=== PATIENT | female | born 1955 | race Caucasian/White ===

== ENCOUNTER 2016-03-27 18:36 | Observation (INO) | payer BC ==
[2016-03-27] MEDS ORDERED: LABETALOL HCL 5 MG/ML 20 ML MDV IVP ONE ×3 (18:57→20:29)
--- NOTE | 2016-03-27 18:58 | CPEKG ---
Heart Rate: 64 RR Interval: 938 P-R Interval: 156 QRSD Interval: 98 QT Interval: 412 QTC Interval: 425 P [place]: 65 QRS [place]: 23 T Wave [place]: -23 EKG Severity - BORDERLINE ECG - EKG Impression: SINUS RHYTHM EKG Impression: PROBABLE LEFT ATRIAL ABNORMALITY EKG Impression: BORDERLINE T ABNORMALITIES, INFERIOR LEADS Electronically Signed By: Ras Ridley 27-Mar-2016 21:06:27
--- NOTE | 2016-03-27 19:05 | EDPHY ---
H & P Stated Complaint: ROBERTSON and HTN Source: Patient, Family Exam Limitations: No limitations - Personal History Current Tetanus Diphtheria and Acellular Pertussis (TDAP): Yes Tetanus Vaccine Date: within 10 years - Medical/Surgical History Hx Asthma: No Hx Chronic Respiratory Disease: No Hx Diabetes: No Hx Cardiac Disease: No Hx Renal Disease: No Hx Cirrhosis: No Hx Alcoholism: No Hx HIV/AIDS: No Hx Splenectomy or Spleen Trauma: No Other PMH: HTN, hypothyroid, - Social History Smoking Status: Never smoked HPI/ROS: CHIEF COMPLAINT: Headache, high blood pressure HISTORY OF PRESENT ILLNESS: several hours history of high blood pressure and headache. This was a gradual onset. Blood pressure has been 190 systolic with varying diastolic measures. Headache is mild and vague primarily on the left hemisphere. No sudden onset. No worst headache of her life. No neck pain or stiffness. No fever or chills. No cough or congestion. No abdominal pain or urinary complaints. History of hypertension on Diovan with medication and hand. She has been weaned off of her propranolol, which she took for tremor. Over the past 2 weeks she has also been creeping up. She has no particular modifying factors. She does have hypothyroidism and takes nature Synthroid, and feels that this may have been increased to much recently. No other associated complaints or modifying factors. REVIEW OF SYSTEMS: Ten systems reviewed and are negative unless otherwise noted in the HPI EXAMINATION General Appearance: Alert, no distress Head: normocephalic, atraumatic . Eyes: Pupils equal and round, no conjunctival pallor or injection. No hyphema. No subconjunctival hemorrhage. EOMs intact. ENT, Mouth: Mucous membranes moist . Uvula midline. Ears clear. Neck: Normal inspection, supple, non-tender . Painless range of motion all planes. Respiratory: Lungs are clear to auscultation No meningismus. . No wheezing, rhonchi or Crackles Cardiovascular: Regular rate and rhythm. Pulses intact distally with symmetric radial, DP and PT pulses Gastrointestinal: Abdomen is soft and nontender. No tympany, rigidity. Nonacute abdomen Back: non-tender, no bony abnormalities Neurological: A&O, nonfocal, cranial nerves 2-12 grossly intact. No focal deficits. No pronator drift. Strength is symmetric in all limbs. No nystagmus. NIH stroke scale 0.Reflexes are symmetric in the patellar and Achilles Skin: Warm and dry, no rash Extremities: Nontender, no pedal edema Psychiatric: Mood and affect normal DIFFERENTIAL DIAGNOSES: Including but not limited to hypertensive emergency, hypertensive urgency, hypertensive headache, hypothyroidism MDM: 6:50 p.m. hypertensive headache without any neuro deficits. She does have a headache and reports of confusion, but she is alert and oriented without any focal deficits. Her strength is symmetric in all limbs. She has no stroke-like symptoms or no stroke findings on examination. Blood pressure was 245/120 by my witnessed. We did order labetalol IV. CT scan is pending as well as laboratory studies and chest x-ray. Plan for admission for hypertensive emergency. Hypertensive urgency. Negative CT of the head. Laboratory studies reveal no evidence of end-organ damage. Blood pressure has come down with our treatment. She is feeling better and her headache is improved. We discussed the case with the hospitalist, Dr. Rangel. Will admit patient to PCU for ongoing management of her care. She remains awake, alert, and neurovascular intact without any chest pain or EKG changes. Patient and spouse are comfortable with this plan she is admitted in stable condition with hypertension. EKG: Interpreted by Dr. Ridley SUPERVISION: Patient was evaluated in conjunction with the supervising physician. Please see their note for details. (Andre Steele) Constitutional: Initial Vital Signs Temperature (C) 98.1 F 03/27/16 18:41 Heart Rate 68 03/27/16 18:41 Respiratory Rate 18 03/27/16 18:41 Blood Pressure 238/119 H 03/27/16 18:41 O2 Sat (%) 94 03/27/16 18:41 O2 Delivery Mode Room Air Allergies/Adverse Reactions: alprazolam [From Xanax] Allergy (Verified 03/27/16 20:09) Home Medications: Medication Instructions Recorded Herbals/Supplements -Info Only 1 ea PO DAILY 03/27/16 Naproxen Sodium [Aleve 220 MG (*)] 220 mg PO HS 03/27/16 Nature Throid 48.75 Mg 48.75 mg PO DAILY 03/27/16 Valsartan [Diovan (*)] 160 mg PO DAILY 03/27/16 Medical Decision Making ED Course/Re-evaluation: This patient was seen and examined by me. Chest is clear to auscultation, heart regular rhythm and rate without murmur. Neurologic exam intact. She was initially given labetalol 10 mg IV x3, which transiently brought her blood pressure down. However her systolic blood pressure quickly climbed back up to over 200. Dr. Rangel was consulted and will admit the pt to PCU. A nitroglycerin drip was started. She was also given labetalol 400 mg orally. ( Cordelia Randolph) - Data Points Laboratory Results: Laboratory Results 03/27/16 18:55 03/27/16 18:55 03/27/16 03/27/16 03/27/16 19:51 18:55 18:53 WBC 7.67 10^3/uL (3.80-9.50) RBC 4.80 10^6/uL (4.18-5.33) Hgb 15.5 g/dL (12.6-16.3) POC Hgb 16.3 H gm/dL (12.3-15.9) Hct 44.3 % (38.0-47.0) POC Hct 48 H % (35.5-47.5) MCV 92.3 fL (81.5-99.8) MCH 32.3 pg (27.9-34.1) MCHC 35.0 g/dL (32.4-36.7) RDW 11.8 % (11.5-15.2) Plt Count 257 10^3/uL (150-400) MPV 10.7 fL (8.7-11.7) Neut % (Auto) 48.4 % (39.3-74.2) Lymph % (Auto) 40.5 % (15.0-45.0) [place] % (Auto) 9.3 % (4.5-13.0) Eos % (Auto) 1.2 % (0.6-7.6) Baso % (Auto) 0.5 % (0.3-1.7) Nucleat RBC Rel Count 0.0 % (0.0-0.2) Absolute Neuts (auto) 3.71 10^3/uL (1.70-6.50) Absolute Lymphs (auto) 3.11 H 10^3/uL (1.00-3.00) Absolute Monos (auto) 0.71 10^3/uL (0.30-0.80) Absolute Eos (auto) 0.09 10^3/uL (0.03-0.40) Absolute Basos (auto) 0.04 10^3/uL (0.02-0.10) Absolute Nucleated RBC 0.00 10^3/uL (0-0.01) Immature Gran % 0.1 % (0.0-1.1) Immature Gran # 0.01 10^3/uL (0.00-0.10) PT 12.5 SEC (12.0-15.0) INR 0.94 (0.83-1.16) APTT 26.7 SEC (23.0-38.0) POC Sodium 144 mEq/L (134-144) Sodium 142 mEq/L (134-144) POC Potassium 3.1 L mEq/L (3.3-5.0) Potassium 3.4 L mEq/L (3.5-5.2) POC Chloride 104 mEq/L (96-108) Chloride 103 mEq/L (97-110) Carbon Dioxide 24 mEq/l (22-31) Anion Gap 15 mEq/L (8-16) POC BUN 22 mg/dL (7-23) BUN 19 mg/dL (7-23) Creatinine 0.7 mg/dL (0.6-1.0) POC Creatinine 0.8 mg/dL (0.6-1.2) Estimated GFR > 60 Glucose 96 mg/dL (70-100) POC Glucose 97 mg/dL (70-100) Calcium 10.5 H mg/dL (8.5-10.4) Total Bilirubin 0.8 mg/dL (0.1-1.4) Conjugated Bilirubin 0.2 mg/dL (0.0-0.5) Unconjugated Bilirubin 0.6 mg/dL (0.0-1.1) AST 33 IU/L (14-46) ALT 53 H IU/L (9-52) Alkaline Phosphatase 82 IU/L (38-126) Troponin I < 0.012 ng/mL (0-0.034) NT-Pro-B Natriuret Pep 68 pg/mL (0-125) Total Protein 8.8 H g/dL (6.3-8.2) Albumin 4.9 g/dL (3.5-5.0) TSH 3.550 uIU/mL (0.465-4.680) Urine Color YELLOW Urine Appearance HAZY Urine pH 6.0 (5.0-7.5) Ur Specific [place] 1.003 (1.002-1.030) Urine Protein NEGATIVE (NEGATIVE) Urine Ketones NEGATIVE (NEGATIVE) Urine Blood NEGATIVE (NEGATIVE) Urine Nitrate NEGATIVE (NEGATIVE) Urine Bilirubin NEGATIVE (NEGATIVE) Urine Urobilinogen NEGATIVE EU (0.2-1.0) Ur Leukocyte Esterase NEGATIVE (NEGATIVE) Ur Culture Indicated? NOT INDICATED (NI) Urine Glucose NEGATIVE (NEGATIVE) Medications Given: Discontinued Medications Labetalol HCl (Trandate Injection) 10 mg IVP EDNOW ONE Stop: 03/27/16 18:58 Last Admin: 03/27/16 19:03 Dose: 10 mg Labetalol HCl (Trandate Injection) 10 mg IVP EDNOW ONE Stop: 03/27/16 19:40 Last Admin: 03/27/16 19:59 Dose: 10 mg Labetalol HCl (Trandate Injection) 10 mg IVP EDNOW ONE Stop: 03/27/16 20:30 Last Admin: 03/27/16 20:38 Dose: 10 mg Point of Care Test Results: 03/27/16 18:53 POC Sodium 144 POC Potassium 3.1 L POC Chloride 104 POC BUN 22 POC Creatinine 0.8 POC Glucose 97 Departure - Departure Disposition: [facility] Inpatient Acute Clinical Impression: Hypertensive emergency Headache Qualifiers: Qualifier Code: (R51) Headache Condition: Good Referrals: Rhina Telelz MD [Primary Care Provider] - As per Instructions
[2016-03-27 19:12] LABS: % IMMATURE GRANULYOCYTES 0.1 % (0.0-1.1); ABSOLUTE IMMATURE GRANULOCYTES 0.01 10^3/uL (0.00-0.10); ADD DIFF? NO; ADD MORPH? NO; ADD SCAN? NO; ATYPICAL LYMPHOCYTE FLAG 10 (0-99); FRAGMENT RBC FLAG 10 (0-99); HEMATOCRIT 44.3 % (38.0-47.0); HEMOGLOBIN 15.5 g/dL (12.6-16.3); LEFT SHIFT FLG 0 (0-99); LIPEMIA HEMOLYSIS FLAG 90 (0-99); MEAN CELL HEMOGLOBIN 32.3 pg (27.9-34.1); MEAN CELL VOLUME 92.3 fL (81.5-99.8); MEAN PLATELET VOLUME 10.7 fL (8.7-11.7); PLATELET CLUMPS FLAG 10 (0-99); PLATELET COUNT 257 10^3/uL (150-400); RED CELL DISTRIBUTION WIDTH 11.8 % (11.5-15.2)
[2016-03-27 19:20] LABS: INR 0.94 (0.83-1.16); PROTIME(PATIENT) 12.5 SEC (12.0-15.0)
[2016-03-27 19:21] LABS: APTT 26.7 SEC (23.0-38.0)
[2016-03-27 19:25] LABS: ALANINE AMINOTRANSFERASE 53 IU/L (9-52); ALBUMIN 4.9 g/dL (3.5-5.0); ALKALINE PHOSPHATASE 82 IU/L (38-126); ANION GAP 15 mEq/L (8-16); ASPARTATE AMINOTRANSFERASE 33 IU/L (14-46); BILIRUBIN,TOTAL 0.8 mg/dL (0.1-1.4); BILIRUBIN-CONJUGATED 0.2 mg/dL (0.0-0.5); BILIRUBIN-UNCONJUGATED 0.6 mg/dL (0.0-1.1); CALCIUM 10.5 mg/dL (8.5-10.4); CARBON DIOXIDE 24 mEq/l (22-31); CHLORIDE 103 mEq/L (97-110); CREATININE 0.7 mg/dL (0.6-1.0); GLOMERULAR FILTRATION RATE > 60; GLUCOSE 96 mg/dL (70-100); POTASSIUM 3.4 mEq/L (3.5-5.2); SODIUM 142 mEq/L (134-144); TOTAL PROTEIN 8.8 g/dL (6.3-8.2)
--- NOTE | 2016-03-27 19:35 | DX ---
Portable Chest, Single View 19:22 Hours Indication: Hypertensive emergency. Comparison: CT chest dated September 15, 2015 and 2 view chest dated September 27, 2010 Findings: The lungs are well aerated and clear with minimal peribronchial thickening in the lower steve g zones. No pneumothorax, edema, consolidation or effusion. Heart size within normal limit. Descendin g thoracic aorta has a tortuous contour. Lacelike matrix in the left humeral head is characteristic o f a benign enchondroma. Impression: Clear lungs. No pulmonary edema or effusion.
[2016-03-27 19:37] LABS: TROPONIN I < 0.012 ng/mL (0-0.034)
[2016-03-27 19:58] LABS: COLOR YELLOW; LEUKOCYTE ESTERASE,URINE NEGATIVE (NEGATIVE); NITRITE,URINE NEGATIVE (NEGATIVE)
--- NOTE | 2016-03-27 20:25 | CT ---
CT Head (Without Contrast) at 19;57 hours Indication: Headache. Hypertension. Technique: Standard noncontrast head CT protocol utilizing 5-mm thick collimated slices and field of view of 23 cm. Dose reduction techniques were utilized. Findings: The brain is normally developed. No intracranial hemorrhage, mass lesion, swelling, or ex traaxial fluid collection. The ventricles are normal caliber and midline. The avina and white matter has normal attenuation. No evidence of ischemia. The bones are unremarkable. The paranasal sinuse s are clear. Impression: Normal brain. No acute intracranial hemorrhage or swelling. Comment: Case was discussed with Andre Steele PA-C, at 8:05 p.m. on March 27, 2016.
[2016-03-27] MEDS ORDERED: NITROGLYCERIN/DEXTROSE 250 ML IV ONE (20:38)
[2016-03-27] MEDS ORDERED: LABETALOL HCL 200 MG TAB PO ONE (20:38)
[2016-03-27] MEDS ORDERED: NS 500 ML IV ONE (21:06)
[2016-03-27] MEDS ORDERED: ONDANSETRON DISINTEGRATING 4 MG TAB PO PRN (21:46)
[2016-03-27] MEDS ORDERED: ACETAMINOPHEN 325 MG TAB PO PRN (21:46)
[2016-03-27] MEDS ORDERED: ONDANSETRON 4 MG/2 ML VIAL IVP PRN (21:46)
[2016-03-27] MEDS ORDERED: NITROGLYCERIN/DEXTROSE 250 ML IV SCH (22:00)
--- NOTE | 2016-03-27 22:55 | GHP ---
[f rep st] HISTORY AND PHYSICAL DATE OF ADMISSION: 03/27/2016 DATE OF EVALUATION: 03/27/2016 HISTORY OF PRESENT ILLNESS: The patient is a pleasant 60-year-old female with a history of hypertens ion, who presents with markedly elevated blood pressure of 242/106. She has been in her usual state of health. She has recently transitioned from Synthroid to nature th yroid, which is an [place] Thyroid-like preparation . This has been about 2 weeks ago. Additionally, she has stopped taking propranolol which she has taken for many years for essential tremor. She does not take clonidine or Catapres. She does not drink a heavy amount of alcohol though she has 1-2 drinks nightly. She does not take chronic pain medicines or anything else from which might be w ithdrawing. She has a headache and some dizziness and that is why she presented. The headache has b een going on for a couple of weeks. She checked her blood pressure at home. It was higher than her blood pressure machine could read so she presented. There has been no urgency, frequency, dysuria. There has been no focal weakness or numbness. There has been no nausea, vomiting. REVIEW OF SYSTEMS: Complete 10-point review of systems conducted and negative except as noted in the HPI. PAST MEDICAL HISTORY: 1. Hypertension. 2. Hypothyroidism. 3. Essential tremor. 4. Lung nodules that have been stable over 1 year. ALLERGIES: Alprazolam. HOME MEDICATIONS: Valsartan, nature thyroid, naproxen, herbals. SOCIAL HISTORY: Quit tobacco a number of years ago. Still has the occasional cigarette, 1-2 drinks nightly. Quit a stressful job in January. FAMILY HISTORY: Father had hypertension. PHYSICAL EXAM: VITAL SIGNS: Blood pressure 238/119, pulse 68, breathing 18 times a minute, 94% on r oom air, temp 36.7. GENERAL: In no acute distress, anxious. HEENT: Sclerae anicteric. Oropharynx clear. Mucous membranes are moist. NECK: Supple without lymphadenopathy or JVD. LUNGS: Clear to auscultation bilaterally. HEART: S1, S2 without murmurs. ABDOMEN: Soft, nontender, nondistended. LOWER EXTREMITIES: Without edema. Calves nontender. SKIN: Without rash. NEUROLOGIC: Nonfocal other than essential tremor. LABS: White count 7.7, hematocrit of 44, platelets are 257,000. Coags normal. Sodium is 142, potas sium 3.4, chloride 103, bicarb 24, BUN 19, creatinine 0.7, glucose 96, calcium 10.5 slightly high, AL T is 63 slightly high. Troponin less than 0.012. UA is unremarkable. EKG, interpreted by me, shows sinus with normal axis and intervals. No ST or T-wave changes. No evidence of chronic hypertension . No LVH. Noncontrast head CT is normal. Chest x-ray, interpreted by me, shows no acute cardiopulm onary disease. Discussed the case with Dr. Hillary Randolph. ASSESSMENT/PLAN: A 60-year-old female with hypertensive urgency. 1. Hypertensive urgency. These are remarkably high blood pressures. I suspect this is due to a com bination of propranolol withdrawal, possibly over thyroid supplementation, as well as progressive hyp ertension. Given the degree of symptoms and hypertension, she is started on a nitro drip. I have st arted on her labetalol 400 b.i.d. Will continue her valsartan. I think we should likely be able to wean the nitro drip off if the labetalol becomes therapeutic. 2. Thyroid. Her TSH is normal here. We will continue this [place] Thyroid although I think it is pr obably reasonable that she go back to her Synthroid dose. 3. Tremor. We will see how she responds to the labetalol in terms of essential tremor. 4. Disposition: Observation status. 5. Prophylaxis: SCDs. Given her uncontrolled hypertension, would hold on pharmacologic prophylaxis . /[id number]/MODL
[2016-03-28 05:25] LABS: ANION GAP 12 mEq/L (8-16); CALCIUM 9.8 mg/dL (8.5-10.4); CARBON DIOXIDE 24 mEq/l (22-31); CHLORIDE 107 mEq/L (97-110); CREATININE 0.9 mg/dL (0.6-1.0); GLOMERULAR FILTRATION RATE > 60; GLUCOSE 101 mg/dL (70-100); POTASSIUM 4.3 mEq/L (3.5-5.2); SODIUM 143 mEq/L (134-144)
[2016-03-28] MEDS: VALSARTAN 160 MG TAB PO SCH (08:02)
[2016-03-28] MEDS ORDERED: LABETALOL HCL 200 MG TAB PO SCH (09:00)
[2016-03-28] MEDS ORDERED: NS 500 ML IV ONE (10:40)
[2016-03-28] MEDS ORDERED: NATURE THROID PO SCH (10:45)
[2016-03-28] MEDS: NATURE THROID PO SCH (11:49)
--- NOTE | 2016-03-28 16:24 | HOSPPROG ---
Hospitalist Progress Note Assessment/Plan: # hypertensive urgency- patient with blood pressures in the 240 systolic in the emergency department CT head( personally reviewed and interpreted) without acute finding patient received multiple labetalol pushes in the ED and 400 mg p.o. labetalol overnight blood pressures dropped this morning to 100 systolic- oxygen saturations 90 % on room air- creatinine 0.9 - holding additional BP meds - restart labetalol 100 twice daily with hold parameters for systolic less than 160 - continue home valsartan - will keep the patient an additional night for close cardiac monitoring # diet cardiac # disposition greater than 2 midnights as the patient is requiring active medication titration I have discussed the case with the RN- we will write hold parameters for new dose of labetalol for this evening if BP at goal between 150-170 can DC in the morning Subjective: denies chest pain feels very sluggish in heavy Objective: Vital Signs Temp Pulse Resp BP Pulse Ox 35.9 C L 60 16 131/73 H 91 L 03/28/16 11:08 03/28/16 11:08 03/28/16 11:08 03/28/16 11:51 03/28/16 11:08 Laboratory Results 03/28/16 04:32 03/27/16 03/28/16 03/29/16 05:59 05:59 05:59 Intake Total 420 500 Balance 420 500 PT 12.5 SEC (12.0-15.0) 03/27/16 18:55 INR 0.94 (0.83-1.16) 03/27/16 18:55 - Physical Exam Constitutional: appears nourished Eyes: anicteric sclera Ears, Nose, Mouth, Throat: moist mucous membranes Cardiovascular: regular rate and rhythym Respiratory: no respiratory distress, no rales or rhonchi Gastrointestinal: normoactive bowel sounds, soft, non-tender abdomen Genitourinary: no bladder fullness Skin: warm, normal color Musculoskeletal: No asymmetric calves Neurologic: AAOx3 Psychiatric: interacting appropriately, not anxious Lymph, Heme, Immunologic: no cervical LAD ICD10 Worksheet Patient Problems: Problems Problem Status Diagnosed Headache Acute Hypertensive emergency Acute
[2016-03-28] MEDS: LABETALOL HCL 100 MG TAB PO SCH (21:29)
[2016-03-29 05:08] VITALS: RESP 16
[2016-03-29 06:07] LABS: ANION GAP 10 mEq/L (8-16); CALCIUM 9.3 mg/dL (8.5-10.4); CARBON DIOXIDE 23 mEq/l (22-31); CHLORIDE 109 mEq/L (97-110); CREATININE 0.8 mg/dL (0.6-1.0); GLOMERULAR FILTRATION RATE > 60; GLUCOSE 98 mg/dL (70-100); POTASSIUM 4.4 mEq/L (3.5-5.2); SODIUM 142 mEq/L (134-144)
[2016-03-29] MEDS: NATURE THROID PO SCH (07:41)
[2016-03-29] MEDS: VALSARTAN 160 MG TAB PO SCH (07:50)
[2016-03-29] MEDS: LABETALOL HCL 100 MG TAB PO SCH (07:51)
[2016-03-29 08:02] VITALS: BP 160/98; PULSE 55; TEMP 97.5; O2SAT 98
[2016-03-29] MEDS ORDERED: AMIODARONE HCL 150 MG/100 ML BAG (1.5 MG/ML) IV ONE (09:19)
--- NOTE | 2016-03-29 18:18 | GDS ---
[f rep st] DISCHARGE SUMMARY DISCHARGE DIAGNOSES: Include: 1. Hypertensive urgency. 2. Hypothyroidism. 3. Essential tremor. HISTORY OF PRESENT ILLNESS: A 60-year-old female, who presented on 03/27/2016 with complaints of shaan vated blood pressures measured at home at greater than 240 systolic. For details of patient's initial presentation, please see the history and physical dated 03/27/2016. CONSULTATIVE SERVICES ON THIS PATIENT: None. PROCEDURES ON THIS PATIENT: On 03/27/2016, patient had a CT of the head which showed no acute stroke s or bleeds. HOSPITAL COURSE BY ISSUE: Hypertensive urgency: Patient presented to the ED with systolic blood pre ssure well above 200 systolic, was treated with multiple pushes of IV labetalol, then transitioned to the PCU for IV medications to lower her blood pressure. Patient was initiated on labetalol 400 b.i. d., in addition to her home dosing of valsartan. Patient had improved blood pressure control over he r first evening and then the morning after presentation, dropped her blood pressure below 100 systoli c and was symptomatic with dizziness and inability to ambulate. Patient was kept for an additional n ight for a continued titration of her regimen. On the day of disposition, her blood pressures have b een titrated to 150 systolic on valsartan 160 and labetalol 100 b.i.d. Patient has been instructed t o check her blood pressures at home and follow in the outpatient setting with her PCP for ongoing tit ration. MEDICATIONS AT THE TIME OF DISPOSITION: Please reference medication reconciliation printed on 2016. PENDING STUDIES AT THE TIME OF THIS DICTATION: None. FOLLOWUP APPOINTMENTS: Include with her PCP in 7-10 days for a blood pressure check and medication t itration if needed. I spent greater than 30 minutes in the planning and coordination of this discharge. /[id number]/MODL
== END 2016-03-29 13:19 | disposition home or self-care (01) ==
LOC: INTOOBSV 20:39 → F2W 22:00
PROVIDERS: ADMIT Internal Medicine; ATTEND Hospitalist
DX: I16.0 Hypertensive urgency (principal); R51 Headache; E03.9 Hypothyroidism, unspecified; G25.0 Essential tremor; R91.1 Solitary pulmonary nodule; Z87.891 Personal history of nicotine dependence
CPT/HCPCS: 70450; 71010; 93005; 96374; 96375; 96376; 99285; G0378; 82947-QW; J0282; J3490

== ENCOUNTER 2016-03-30 19:38 | Emergency (ER) | payer BC ==
--- NOTE | 2016-03-30 19:51 | EDPHY ---
H & P Time Seen by Provider: 03/30/16 19:39 HPI/ROS: CHIEF COMPLAINT: Hypertension HISTORY OF PRESENT ILLNESS: The patient is a 60-year-old female who comes by EMS for elevated blood pressure 220/110. She is asymptomatic. No headache. No nausea or vomiting. No chest pain or shortness of breath. She was admitted recently is with hypertension and started on labetalol 100 mg twice daily. She followed up with her doctor Rosalinda today in their the office it was 160/ 70. She added Norvasc 2.5 mg daily. The patient fill this prescription to get this evening. She then however noticed at the pharmacy that her blood pressure was high. She did have slight lightheadedness at the time but does not now. No palpitations. REVIEW OF SYSTEMS: Constitutional: denies: chills, fever, recent illness, recent injury EENTM: denies: blurred vision, double vision, nose congestion Respiratory: denies: cough, shortness of breath Cardiac: denies: chest pain, irregular heart rate, palpitations Gastrointestinal/Abdominal: denies: abdominal pain, diarrhea, nausea, vomiting, blood streaked stools Genitourinary: denies: dysuria, frequency, hematuria, pain Musculoskeletal: denies: joint pain, muscle pain Skin: denies: lesions, rash, jaundice, bruising Neurological: denies: headache, numbness, paresthesia, tingling, dizziness, weakness Hematologic/Lymphatic: denies: blood clots, easy bleeding, easy bruising Immunologic/allergic: denies: HIV/AIDS, transplant EXAM: GENERAL: Well-appearing, well-nourished and in no acute distress. HEAD: Atraumatic, normocephalic. EYES: Pupils equal round and reactive to light, extraocular movements intact, sclera anicteric, conjunctiva are normal. ENT: TMs normal, nares patent, oropharynx clear without exudates. Moist mucous membranes. NECK: Normal range of motion, supple without lymphadenopathy or JVD. LUNGS: Breath sounds clear to auscultation bilaterally and equal. No wheezes rales or rhonchi. HEART: Regular rate and rhythm without murmurs, rubs or gallops. ABDOMEN: Soft, nontender, normoactive bowel sounds. No guarding, no rebound. No masses appreciated. BACK: No CVA tenderness, no spinal tenderness, step-offs or deformities EXTREMITIES: Normal range of motion, no pitting or edema. No clubbing or cyanosis. NEUROLOGICAL: Cranial nerves II through XII grossly intact. Normal speech, normal gait. 5/5 strength, normal movement in all extremities, normal sensation PSYCH: Normal mood, normal affect. SKIN: Warm, dry, normal turgor, no visible rashes or lesions. Source: Patient Exam Limitations: No limitations - Personal History Tetanus Vaccine Date: within 10 years - Medical/Surgical History Hx Asthma: No Hx Chronic Respiratory Disease: No Hx Diabetes: No Hx Cardiac Disease: No Hx Renal Disease: No Hx Cirrhosis: No Hx Alcoholism: No Hx HIV/AIDS: No Hx Splenectomy or Spleen Trauma: No Other PMH: HTN, hypothyroid, familial tremor, r acl replaced, L4-5 microdiscectomy, 2 corrective eye surgeries, - Family History Significant Family History: No pertinent family hx - Social History Smoking Status: Former smoker Alcohol Use: Sober Drug Use: None Constitutional: Initial Vital Signs Temperature (C) 37 C 03/30/16 19:50 Heart Rate 66 03/30/16 19:50 Respiratory Rate 17 03/30/16 19:50 Blood Pressure 220/112 H 03/30/16 19:50 O2 Sat (%) 96 03/30/16 19:50 O2 Delivery Mode Room Air Allergies/Adverse Reactions: alprazolam [From Xanax] Allergy (Verified 03/30/16 19:50) Home Medications: Medication Instructions Recorded Herbals/Supplements -Info Only 1 ea PO DAILY 03/27/16 Naproxen Sodium [Aleve 220 MG (*)] 220 mg PO HS 03/27/16 Nature Throid 48.75 Mg 48.75 mg PO DAILY 03/27/16 Labetalol HCl [Trandate 100 mg (*)] 100 mg PO BID #60 tab 03/29/16 Valsartan [Diovan (*)] 160 mg PO DAILY #30 tab 03/29/16 clonIDINE [Catapres (*)] 0.1 mg PO BID PRN #20 tab 03/30/16 Medical Decision Making - Diagnostics EKG Interpretation: An EKG obtained and was read and documented in trace view. Please see trace view for full reading and report. Sinus rhythm, no acute ischemic changes. ED Course/Re-evaluation: He p.m. the patient's blood pressure is improving . Currently is 180/90. Do not want to drop too low at 1 time . 8:50 p.m. the patient's blood pressure is 166/100. She is happy with this and asymptomatic. She states that she was going to switch back to her old Synthroid medication. She states that her blood pressure acutely elevated which she started taking the new natural thyroid medicine. I will also refer her to Cardiology for difficult to manage blood pressure. I will give her a prescription for clonidine to take p.r.n.. Differential Diagnosis: Partial list of the Differential diagnosis considered include but were not limited to; hypertension, anxiety and although unlikely based on the history and physical exam, I also considered hypertensive emergency, stroke, TIA, acute coronary disease, PE. I discussed these differential diagnoses and the plan with the patient as well as the usual and expected course. The patient understands that the diagnosis is provisional and that in medicine we are not always correct and that further workup is often warranted. Usual and customary warnings were given. All of the patient's questions were answered. The patient was instructed to return to the emergency department should the symptoms at all worsen or return, otherwise to followup with the physician as we discussed. - Data Points Medications Given: Discontinued Medications Clonidine (Catapres) 0.1 mg PO EDNOW ONE Stop: 03/30/16 19:48 Last Admin: 03/30/16 19:57 Dose: 0.1 mg Clonidine (Catapres) 0.1 mg PO EDNOW ONE Stop: 03/30/16 21:01 Last Admin: 03/30/16 21:07 Dose: 0.1 mg Departure - Departure Disposition: Home, Routine, Self-Care Clinical Impression: Hypertension Qualifiers: Hypertension type: essential hypertension Qualifier Code: (I10) Essential ( primary) hypertension Condition: Fair Instructions: Hypertension (ED) Referrals: Rhina Tellez MD [Primary Care Provider] - As per Instructions Nkechi Stafford MD [Medical Doctor] - As per Instructions Prescriptions: clonIDINE [Catapres (*)] 0.1 mg PO BID PRN #20 tab PRN Reason: Severe Hypertension
[2016-03-30 20:08] VITALS: RESP 15
--- NOTE | 2016-03-30 20:08 | CPEKG ---
Heart Rate: 80 RR Interval: 750 P-R Interval: 180 QRSD Interval: 90 QT Interval: 368 QTC Interval: 425 P [place]: 65 QRS [place]: 23 T Wave [place]: -17 EKG Severity - NORMAL ECG - EKG Impression: SINUS RHYTHM Electronically Signed By: Alex Eden 30-Mar-2016 20:24:43
[2016-03-30 21:17] VITALS: BP 159/99; PULSE 67; TEMP 98.1; O2SAT 94
== END 2016-03-30 21:17 | disposition home or self-care (01) ==
LOC: EDUNIT#
DX: I10 Essential (primary) hypertension (principal); Z87.891 Personal history of nicotine dependence

== ENCOUNTER → 2016-04-11 | Outpatient (CLI) | payer BC ==
--- NOTE | 2016-04-11 13:00 | US ---
Retroperitoneal Ultrasound with duplex Doppler analysis to evaluate for renal artery stenosis History: 2 episodes of uncontrolled hypertension, rectal bleeding last week Comparison: Report of outside CT from [facility] April 04, 2016 Findings: The right kidney measures 10.4 and the left kidney 11.8 cm in length. The renal cortex is s mooth and of normal echogenicity. There is no focal renal cortical scarring. There is no hydronephros is. A small hyperechoic nodule in the upper pole measures 9.2 x 9.4 x 7.6 mm, is more echogenic perip herally then centrally, and is likely consistent with an angiomyolipoma seen on the recent CT. 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 In the left kidney, there is a 10 x 8 x 8 mm echogenic nodule in the l ower pole consistent with a small angiomyolipoma seen on the recent CT. A small nonobstructive stone is also confirmed in the lower pole of the left kidney measuring 5 mm. Duplex Doppler evaluation: Right kidney: Right main renal artery peak systolic velocity = 280 cm/s. Main renal artery resistive index = 61 Maximum peak systolic renal artery velocity/aortic velocity = 2.0 Right main renal artery acceleration time =46 ms Superior segment acceleration time =38 ms Mid segment acceleration time =24 ms Inferior segment acceleration time =16 ms Left kidney: Left main renal artery peak systolic velocity = 115 cm/s And renal artery resistive index = 75 smaller Peak systolic renal artery velocities/aortic velocity = 0.8 Left main renal artery acceleration time = 38 ms Superior segment acceleration time = 16 ms Mid segment acceleration time = 28 ms Inferior segment acceleration time = 63 ms Impression: Generally increased velocity in the uniformly smaller right kidney is soft evidence for r enal artery stenosis. Recommend CT Angiography of the renal arteries for further evaluation.
== END ==
LOC: BMCIMAGING 10:14
PROVIDERS: ATTEND Internal Medicine
DX: I16.0 Hypertensive urgency (principal); K62.5 Hemorrhage of anus and rectum; N20.0 Calculus of kidney; N28.9 Disorder of kidney and ureter, unspecified; K76.9 Liver disease, unspecified

== ENCOUNTER → 2016-05-17 | Outpatient (CLI) | payer BC | LOC: FIMAGING 10:31 | DX: Z12.31 Encounter for screening mammogram for malignant neoplasm of breast (principal) | CPT/HCPCS: G0202 ==

== ENCOUNTER → 2017-01-22 | Outpatient (CLI) | payer BC | LOC: BMCIMAGING 07:49 | PROVIDERS: ATTEND Internal Medicine Cardiovascular Disease | DX: I70.1 Atherosclerosis of renal artery (principal); N20.0 Calculus of kidney; I10 Essential (primary) hypertension ==

== ENCOUNTER → 2017-05-21 | Outpatient (CLI) | payer BC | LOC: FIMAGING 09:49 | PROVIDERS: ATTEND Obstetrics & Gynecology | DX: Z12.31 Encounter for screening mammogram for malignant neoplasm of breast (principal) ==